=== PATIENT | male | born 1945 | race Caucasian/White ===

== ENCOUNTER 2017-10-26 11:31 | Inpatient (IN) | payer MEDICARE ==
[~2017-10-26] VITALS: Ht 175.3 cm; Wt 79.4 kg
[~2017-10-26 11:31] MED LIST: GLIP1TAB4 PO; METF500T6 PO; PSYCH PO; [UNRECOGNIZED DRUG - CODE] PO
[2017-10-26] MEDS ORDERED: SODIUM CHLORIDE 0.9% 2,000 ML IV ONE (12:06)
[2017-10-26] MEDS ORDERED: INSULIN REGULAR, HUMAN 100 UNITS/ML IVP ONE ×3 (12:15→13:30)
[2017-10-26 12:26] LABS: BASOPHILS % (AUTO) 0.7 % (0.0-2.0); EOSINOPHILS % (AUTO) 0.6 % (1.0-6.0); HEMATOCRIT 38.8 % (41-53); HEMOGLOBIN 13.3 g/dL (13.5-17.5); LYMPHOCYTES # (AUTO) 1.5 K/uL (1.0-4.8); LYMPHOCYTES % (AUTO) 18.9 % (22.0-44.0); MEAN CORPUSCULAR HEMOGLOBIN 29.4 pg (26.0-34.0); MEAN CORPUSCULAR HGB CONC 34.4 G/dL (31.0-37.0); MEAN CORPUSCULAR VOLUME 85 fL (80-100); MONOCYTES # (AUTO) 0.5 K/uL (0.1-1.0); MONOCYTES % (AUTO) 6.9 % (2.0-9.0); NEUTROPHILS # (AUTO) 5.8 K/uL (1.8-7.7); NEUTROPHILS % (AUTO) 72.9 % (40.0-70.0); PLATELET COUNT (AUTO) 235 K/uL (150-450); RED BLOOD CELL COUNT(AUTO) 4.54 MIL/uL (4.50-5.90); RED CELL DISTRIBUTION WIDTH 13.9 % (11.5-14.5)
[2017-10-26 12:47] LABS: ALANINE AMINOTRANSFERASE 26 U/L (12-78); ALBUMIN 3.4 g/dL (3.4-5.0); ALKALINE PHOSPHATASE 105 U/L (46-116); ANION GAP 22 mmol/L (8-16); ASPARTATE AMINOTRANSFERASE 14 U/L (15-37); BILIRUBIN,TOTAL 0.5 mg/dL (0.1-1.0); CALCIUM, TOTAL 8.6 mg/dL (8.8-10.5); CARBON DIOXIDE 16 mmol/L (22-29); CHLORIDE 87 mmol/L (98-107); CREATININE 1.15 mg/dL (0.60-1.30); LIPASE 324 U/L (73-393); POTASSIUM 3.9 mmol/L (3.5-5.1); SODIUM SERUM 125 mmol/L (136-145); TOTAL PROTEIN, SERUM 7.1 g/dL (6.4-8.2); UREA NITROGEN, BLOOD 14 mg/dL (7-18)
[2017-10-26 12:51] LABS: B-TYPE NATRIURETIC PEPTIDE 12 pg/mL (0-100)
[2017-10-26 12:53] LABS: GLOMERULAR FILTR. RATE CALC > 60 mL/min (>60)
[2017-10-26 13:19] LABS: GLUCOSE,RANDOM 846 mg/dL (70-110)
[2017-10-26 13:19] LABS: APPEARANCE,URINE CLEAR (CLEAR); BILIRUBIN,URINE NEGATIVE (NEGATIVE); GLUCOSE, URINE (UA) >=1000 mg/dL (NEGATIVE); KETONES,URINE 40 mg/dL (NEGATIVE); LEUKOCYTE ESTERASE ,URINE TRACE (NEGATIVE); NITRATE,URINE NEGATIVE (NEGATIVE); OCCULT BLOOD,URINE NEGATIVE (NEGATIVE); PROTEIN,URINE NEGATIVE (NEGATIVE); UROBILINOGEN,URINE 0.2 mg/dL (<=1.0)
[2017-10-26 13:27] LABS: BACTERIA,URINE Rare /HPF (None Seen); RBC,URINE None Seen /HPF (0-2); SQUAMOUS EPITHELIAL CELL,UR Few /LPF (None Seen); WBC,URINE 0-2 /HPF (0-5); YEAST,URINE Moderate /HPF (None Seen)
[2017-10-26] MEDS ORDERED: SODIUM CHLORIDE 0.9% 1,000 ML IV ONE (13:30)
[2017-10-26 13:39] LABS: GLUCOSE,POINT OF CARE 539 MG/DL (70-110)
[2017-10-26] MEDS ORDERED: INSULIN REGULAR, HUMAN 100 UNITS in SODIUM CHLORIDE 0.9% 99 ML IV PRN ×4 (14:27→15:29)
[2017-10-26] MEDS ORDERED: SODIUM CHLORIDE 0.9% 1,000 ML IV SCH (14:27)
[2017-10-26] MEDS ORDERED: DEXTROSE 5%-0.45% SODIUM CHL 1,000 ML IV PRN (14:27)
[2017-10-26] MEDS ORDERED: SODIUM CHLORIDE 0.45% 1,000 ML IV PRN (14:27)
[2017-10-26] MEDS ORDERED: POTASSIUM CHLORIDE 40 MEQ in SODIUM CHLORIDE 0.45% 1,000 ML IV PRN (14:27)
[2017-10-26] MEDS ORDERED: POTASSIUM CHL 20 MEQ/0.45% NS 1,000 ML IV PRN (14:27)
[2017-10-26] MEDS ORDERED: DEXTROSE 50%-WATER 25 GM/50 ML SYRINGE IVP PRN ×2 (14:30→23:45)
[2017-10-26] MEDS ORDERED: INSULIN REGULAR, HUMAN 100 UNITS/ML IVP PRN (14:30)
[2017-10-26 14:43] LABS: GLUCOSE,POINT OF CARE 496 MG/DL (70-110)
[2017-10-26] MEDS: INSULIN REGULAR, HUMAN 100 UNITS in SODIUM CHLORIDE 0.9% 99 ML IV PRN ×4 (15:10→20:00)
[2017-10-26 15:11] LABS: ANION GAP 15 mmol/L (8-16); CARBON DIOXIDE 20 mmol/L (22-29); CHLORIDE 99 mmol/L (98-107); CREATININE 0.96 mg/dL (0.60-1.30); POTASSIUM 3.7 mmol/L (3.5-5.1); SODIUM SERUM 134 mmol/L (136-145); UREA NITROGEN, BLOOD 11 mg/dL (7-18)
[2017-10-26 15:14] LABS: GLOMERULAR FILTR. RATE CALC > 60 mL/min (>60); GLUCOSE,RANDOM 479 mg/dL (70-110)
[2017-10-26] MEDS: POTASSIUM CHL 10 MEQ/WATER 50 ML IV SCH ×4 (15:40→19:30)
[2017-10-26 16:24] LABS: GLUCOSE,POINT OF CARE 300 MG/DL (70-110)
[2017-10-26] MEDS ORDERED: ONDANSETRON HCL 4 MG/2 ML VIAL IVP PRN (17:00)
[2017-10-26] MEDS ORDERED: ACETAMINOPHEN 325 MG TABLET PO PRN (17:00)
[2017-10-26] MEDS ORDERED: 0.9% SODIUM CHLORIDE 10 ML SYRINGE IVP PRN (17:00)
[2017-10-26 17:20] LABS: GLUCOSE,POINT OF CARE 219 MG/DL (70-110)
[2017-10-26 18:14] LABS: GLUCOSE,POINT OF CARE 213 MG/DL (70-110)
[2017-10-26 19:20] LABS: ANION GAP 15 mmol/L (8-16); CALCIUM, TOTAL 8.5 mg/dL (8.8-10.5); CARBON DIOXIDE 20 mmol/L (22-29); CHLORIDE 104 mmol/L (98-107); CREATININE 0.85 mg/dL (0.60-1.30); GLOMERULAR FILTR. RATE CALC > 60 mL/min (>60); GLUCOSE,RANDOM 210 mg/dL (70-110); POTASSIUM 3.6 mmol/L (3.5-5.1); SODIUM SERUM 139 mmol/L (136-145); UREA NITROGEN, BLOOD 10 mg/dL (7-18)
[2017-10-26] MEDS ORDERED: LISINOPRIL 10 MG TABLET PO ONE (19:45)
[2017-10-26] MEDS ORDERED: CloNIDine HCL 0.1 MG TABLET PO PRN (19:45)
[2017-10-26 20:00] VITALS: BP 151/73
[2017-10-26 23:09] LABS: GLUCOSE,POINT OF CARE 110 MG/DL (70-110)
[2017-10-26 23:28] LABS: ANION GAP 13 mmol/L (8-16); CALCIUM, TOTAL 8.3 mg/dL (8.8-10.5); CARBON DIOXIDE 21 mmol/L (22-29); CHLORIDE 105 mmol/L (98-107); CREATININE 0.72 mg/dL (0.60-1.30); GLOMERULAR FILTR. RATE CALC > 60 mL/min (>60); GLUCOSE,RANDOM 139 mg/dL (70-110); POTASSIUM 3.3 mmol/L (3.5-5.1); SODIUM SERUM 139 mmol/L (136-145); UREA NITROGEN, BLOOD 9 mg/dL (7-18)
[2017-10-26] MEDS ORDERED: INSULIN REGULAR, HUMAN 100 UNITS/ML SQ ONE (23:45)
[2017-10-26] MEDS ORDERED: INSULIN GLARGINE,HUM.REC.ANLOG 100 UNITS/ML SQ ONE (23:45)
[2017-10-27] VITALS (7 sets, daily range): BP systolic 107–150; BP diastolic 42–73
[2017-10-27] LABS: GLUCOSE,POINT OF CARE 143 MG/DL (70-110)
[2017-10-27] LABS: GLUCOSE,POINT OF CARE 123 MG/DL (70-110)
[2017-10-27] LABS: GLUCOSE,POINT OF CARE 107 MG/DL (70-110)
[2017-10-27] MEDS ORDERED: POTASSIUM CHLORIDE 40 MEQ in SODIUM CHLORIDE 0.45% 1,000 ML IV PRN ×2 (01:31→01:34)
[2017-10-27] MEDS: INSULIN LISPRO 100 UNITS/ML SQ PRN ×5 (04:01→20:30)
[2017-10-27 05:49] LABS: ANION GAP 10 mmol/L (8-16); CALCIUM, TOTAL 8.2 mg/dL (8.8-10.5); CARBON DIOXIDE 23 mmol/L (22-29); CHLORIDE 105 mmol/L (98-107); CREATININE 0.67 mg/dL (0.60-1.30); GLUCOSE,RANDOM 157 mg/dL (70-110); POTASSIUM 3.3 mmol/L (3.5-5.1); SODIUM SERUM 138 mmol/L (136-145); UREA NITROGEN, BLOOD 10 mg/dL (7-18)
[2017-10-27 05:53] LABS: GLOMERULAR FILTR. RATE CALC > 60 mL/min (>60)
[2017-10-27] MEDS ORDERED: POTASSIUM CHL 10 MEQ/WATER 50 ML IV PRN (08:00)
[2017-10-27] MEDS: SODIUM CHLORIDE 0.9% 1,000 ML IV SCH (08:21)
[2017-10-27] MEDS: POTASSIUM CHLORIDE 20 MEQ ER TABLET PO PRN (08:22)
[2017-10-27] MEDS ORDERED: MAGNESIUM GLUCONATE 1 GM/5 ML LIQUID 22 ML UDCUP PO PRN (09:15)
[2017-10-27] MEDS ORDERED: MAGNESIUM SULFATE 4 GM/WATER 100 ML IV PRN (09:15)
[2017-10-27] MEDS ORDERED: MAGNESIUM SULFATE 2 GM/WATER 50 ML IV PRN (09:15)
[2017-10-27] MEDS: MAGNESIUM OXIDE 400 MG TABLET PO PRN ×3 (09:34→16:41)
[2017-10-27 12:57] LABS: POTASSIUM 3.6 mmol/L (3.5-5.1)
[2017-10-27] MEDS ORDERED: ZOLPIDEM TARTRATE 5 MG TABLET PO PRN (14:15)
[2017-10-27] MEDS ORDERED: ONDANSETRON HCL 4 MG/2 ML VIAL IVP PRN (14:15)
[2017-10-27] MEDS ORDERED: OxyCODONE HCL/ACETAMINOPHEN 5-325 MG TABLET PO PRN ×2 (14:15)
[2017-10-27] MEDS ORDERED: IPRATROPIUM BROMIDE 0.5 MG/2.5 ML NEB SOLUTION NEB PRN (14:15)
[2017-10-27] MEDS ORDERED: LEVOTHYROXINE SODIUM 25 MCG TABLET PO ONE (14:15)
[2017-10-27] MEDS ORDERED: FINASTERIDE 5 MG TABLET PO ONE (14:15)
[2017-10-27] MEDS ORDERED: ALBUTEROL SULFATE 2.5 MG/0.5 ML NEB SOLUTION NEB PRN (14:15)
[2017-10-27] MEDS ORDERED: LISINOPRIL 5 MG TABLET PO ONE (14:15)
[2017-10-27] MEDS ORDERED: ACETAMINOPHEN 325 MG TABLET PO PRN (14:15)
[2017-10-27 14:55] LABS: GLUCOSE,POINT OF CARE 168 MG/DL (70-110)
[2017-10-27 14:55] LABS: GLUCOSE,POINT OF CARE 133 MG/DL (70-110)
[2017-10-27 14:56] LABS: FREE T4 (FREE THYROXINE) 0.79 ng/dL (0.76-1.46); THYROID STIMULATING HORMONE 6.41 uIU/mL (0.36-3.74)
[2017-10-27] MEDS: HEPARIN SODIUM,PORCINE 5,000 UNITS/ML VIAL SQ SCH (15:34)
[2017-10-27] MEDS: GlipiZIDE 10 MG TABLET PO SCH (16:41)
[2017-10-27] MEDS ORDERED: DOCUSATE SODIUM 100 MG CAPSULE PO SCH (21:00)
[2017-10-27] MEDS ORDERED: INSULIN GLARGINE,HUM.REC.ANLOG 100 UNITS/ML SQ SCH (21:00)
[2017-10-28 00:14] VITALS: BP 143/65
[2017-10-28] MEDS: HEPARIN SODIUM,PORCINE 5,000 UNITS/ML VIAL SQ SCH ×3 (00:26→15:34)
[2017-10-28 01:29] LABS: GLUCOMETER DEV NAME(LOC) 6N 1E; GLUCOSE,POINT OF CARE 208 MG/DL (70-110)
[2017-10-28] MEDS: SODIUM CHLORIDE 0.9% 1,000 ML IV SCH ×2 (02:31→11:56)
[2017-10-28 04:41] VITALS: BP 116/56
[2017-10-28] MEDS ORDERED: LEVOTHYROXINE SODIUM 25 MCG TABLET PO SCH (06:30)
[2017-10-28 06:32] LABS: MAGNESIUM 1.6 mg/dL (1.80-2.40); POTASSIUM 3.3 mmol/L (3.5-5.1)
[2017-10-28] MEDS: GlipiZIDE 10 MG TABLET PO SCH (06:49)
[2017-10-28] MEDS: INSULIN LISPRO 100 UNITS/ML SQ PRN ×2 (06:51→11:55)
[2017-10-28 07:19] LABS: GLUCOMETER DEV NAME(LOC) 6N 1E; GLUCOSE,POINT OF CARE 226 MG/DL (70-110)
[2017-10-28 07:41] VITALS: BP 135/55
[2017-10-28 07:59] LABS: GLUCOSE,POINT OF CARE 212 MG/DL (70-110)
[2017-10-28 07:59] LABS: GLUCOSE,POINT OF CARE 171 MG/DL (70-110)
[2017-10-28] MEDS: MAGNESIUM OXIDE 400 MG TABLET PO PRN (08:31)
[2017-10-28] MEDS: POTASSIUM CHLORIDE 20 MEQ ER TABLET PO PRN (08:31)
[2017-10-28] MEDS ORDERED: PANTOPRAZOLE SODIUM 40 MG DR TABLET PO SCH (09:00)
[2017-10-28] MEDS ORDERED: LISINOPRIL 5 MG TABLET PO SCH (09:00)
[2017-10-28] MEDS ORDERED: ATORVASTATIN CALCIUM 40 MG TABLET PO SCH (09:00)
[2017-10-28] MEDS ORDERED: FINASTERIDE 5 MG TABLET PO SCH (09:00)
[2017-10-28 11:21] VITALS: BP 107/52
[2017-10-28] MEDS ORDERED: GLIP10 PO (14:25)
[2017-10-28] MEDS ORDERED: ATOR40TA28 PO (14:25)
[2017-10-28] MEDS ORDERED: FINA5TAB41 PO (14:25)
[2017-10-28] MEDS ORDERED: INSLAN SQ (14:26)
[2017-10-28] MEDS ORDERED: LEVO25TA9 PO (14:26)
[2017-10-28] MEDS ORDERED: LISI-660 PO (14:26)
[2017-10-28 16:05] VITALS: BP 105/66
[2017-10-28 16:23] LABS: GLUCOMETER DEV NAME(LOC) 6N 2D; GLUCOSE,POINT OF CARE 249 MG/DL (70-110)
== END 2017-10-28 16:50 | disposition home or self-care (01) | DRG 639 ==
LOC: EMS 11:31 → ICU 17:38 → 6N 10-27 18:00
PROVIDERS: ADMIT Hospitalist; ATTEND Hospitalist
DX: E11.10 Type 2 diabetes mellitus with ketoacidosis without coma (principal); E83.42 Hypomagnesemia; E87.6 Hypokalemia; E78.00 Pure hypercholesterolemia, unspecified; F17.210 Nicotine dependence, cigarettes, uncomplicated; N40.0 Benign prostatic hyperplasia without lower urinary tract symptoms; E03.9 Hypothyroidism, unspecified; I10 Essential (primary) hypertension; E78.5 Hyperlipidemia, unspecified; Z79.84 Long term (current) use of oral hypoglycemic drugs
CPT/HCPCS: 70450; 83036; 83735; 84132; 84439; 84443; 87081; 93005; 96360; 96361; 96374; 96376; 97161; 97530; 99291; J1644; J1815; J3480; J7030; J7050

== ENCOUNTER 2017-11-03 09:01 | Emergency (ER) | payer MEDICARE ==
[~2017-11-03] VITALS: Ht 177.8 cm; Wt 0.9 kg
[~2017-11-03 09:01] MED LIST changes: +ATOR40TA28 PO; +FINA5TAB41 PO; +GLIP10 PO; -GLIP1TAB4 PO; +INSLAN SQ; +LEVO25TA9 PO; +LISI-660 PO; -METF500T6 PO; -PSYCH PO; -[UNRECOGNIZED DRUG - CODE] PO
[2017-11-03 09:29] LABS: GLUCOSE,POINT OF CARE 397 MG/DL (70-110)
[2017-11-03] MEDS ORDERED: INSULIN REGULAR, HUMAN 100 UNITS/ML IVP ONE ×2 (10:00→11:30)
[2017-11-03 10:08] LABS: BASOPHILS % (AUTO) 0.9 % (0.0-2.0); EOSINOPHILS % (AUTO) 1.6 % (1.0-6.0); HEMOGLOBIN 10.9 g/dL (13.5-17.5); LYMPHOCYTES # (AUTO) 1.9 K/uL (1.0-4.8); LYMPHOCYTES % (AUTO) 33.9 % (22.0-44.0); MEAN CORPUSCULAR HEMOGLOBIN 30.4 pg (26.0-34.0); MEAN CORPUSCULAR HGB CONC 35.1 G/dL (31.0-37.0); MEAN CORPUSCULAR VOLUME 87 fL (80-100); MONOCYTES # (AUTO) 0.3 K/uL (0.1-1.0); MONOCYTES % (AUTO) 5.3 % (2.0-9.0); NEUTROPHILS # (AUTO) 3.3 K/uL (1.8-7.7); NEUTROPHILS % (AUTO) 58.3 % (40.0-70.0); PLATELET COUNT (AUTO) 249 K/uL (150-450); RED BLOOD CELL COUNT(AUTO) 3.58 MIL/uL (4.50-5.90); RED CELL DISTRIBUTION WIDTH 13.9 % (11.5-14.5)
[2017-11-03 10:22] LABS: ALANINE AMINOTRANSFERASE 20 U/L (12-78); ALBUMIN 2.7 g/dL (3.4-5.0); ALKALINE PHOSPHATASE 81 U/L (46-116); ANION GAP 9 mmol/L (8-16); ASPARTATE AMINOTRANSFERASE 12 U/L (15-37); BILIRUBIN,TOTAL 0.3 mg/dL (0.1-1.0); CALCIUM, TOTAL 8.6 mg/dL (8.8-10.5); CARBON DIOXIDE 25 mmol/L (22-29); CHLORIDE 99 mmol/L (98-107); CREATININE 0.85 mg/dL (0.60-1.30); POTASSIUM 4.1 mmol/L (3.5-5.1); SODIUM SERUM 133 mmol/L (136-145); TOTAL PROTEIN, SERUM 6.3 g/dL (6.4-8.2); UREA NITROGEN, BLOOD 10 mg/dL (7-18)
[2017-11-03 10:25] LABS: GLOMERULAR FILTR. RATE CALC > 60 mL/min (>60); GLUCOSE,RANDOM 405 mg/dL (70-110)
[2017-11-03 11:18] LABS: GLUCOSE,POINT OF CARE 296 MG/DL (70-110)
[2017-11-03] MEDS ORDERED: SODIUM CHLORIDE 0.9% 1,000 ML IV ONE (13:00)
[2017-11-03 14:28] LABS: GLUCOSE,POINT OF CARE 200 MG/DL (70-110)
[2017-11-03 15:18] LABS: APPEARANCE,URINE CLEAR (CLEAR); BILIRUBIN,URINE NEGATIVE (NEGATIVE); GLUCOSE, URINE (UA) >=1000 mg/dL (NEGATIVE); KETONES,URINE NEGATIVE (NEGATIVE); LEUKOCYTE ESTERASE ,URINE SMALL (NEGATIVE); NITRATE,URINE NEGATIVE (NEGATIVE); OCCULT BLOOD,URINE NEGATIVE (NEGATIVE); PROTEIN,URINE TRACE (NEGATIVE); UROBILINOGEN,URINE 0.2 mg/dL (<=1.0)
[2017-11-03 15:24] LABS: BACTERIA,URINE Rare /HPF (None Seen); RBC,URINE 0-2 /HPF (0-2); SQUAMOUS EPITHELIAL CELL,UR Few /LPF (None Seen); YEAST,URINE Few /HPF (None Seen)
[2017-11-03 15:38] LABS: THYROID STIMULATING HORMONE 10.49 uIU/mL (0.36-3.74)
[2017-11-03] MEDS ORDERED: CIPROFLOXACIN HCL 250 MG TABLET PO ONE (16:00)
[2017-11-03] MEDS ORDERED: LEVOTHYROXINE SODIUM 50 MCG TABLET PO ONE (16:00)
[2017-11-03 16:05] VITALS: BP 125/88
== END 2017-11-03 16:30 | disposition home or self-care (01) ==
LOC: EMS 09:02
DX: E11.65 Type 2 diabetes mellitus with hyperglycemia (principal); N39.0 Urinary tract infection, site not specified; E03.9 Hypothyroidism, unspecified; I10 Essential (primary) hypertension; E78.00 Pure hypercholesterolemia, unspecified; F17.210 Nicotine dependence, cigarettes, uncomplicated; Z79.4 Long term (current) use of insulin
CPT/HCPCS: 36415; 80053; 81001; 82962; 84443; 84484; 85025; 87086; 93005; 96361; 96374; 96376; 99285; 99406; J1815; J7030